=== PATIENT | male | born 1970 | race American Indian/Alaskan Native ===

== ENCOUNTER 2021-04-20 01:30 | Emergency (ER) | payer OTHER, SELFPAY ==
[2021-04-20 02:06] LABS: Basophils # (Auto) 0.1 K/mm3 (0.0-0.1); Basophils % (Auto) 1.1 % (0.0-1.8); Eosinophils # (Auto) 0.2 K/mm3 (0.0-0.4); Eosinophils % (Auto) 4.1 % (0.0-4.3); Hematocrit 37.6 % (35.5-45.6); Hemoglobin 12.4 gm/dl (11.8-15.2); Lymphocytes # (Auto) 2.2 K/mm3 (1.2-5.4); Lymphocytes % (Auto) 36.8 % (13.4-35.0); Mean Corpuscular HGB Conc 33 % (32-34); Mean Corpuscular Volume 81 fl (84-94); Monocytes # (Auto) 0.5 K/mm3 (0.0-0.8); Monocytes % (Auto) 9.2 % (0.0-7.3); Platelet Count 247 K/mm3 (140-440); Red Blood Count 4.62 M/mm3 (3.65-5.03); Red Cell Distribution Width 17.1 % (13.2-15.2)
--- NOTE | 2021-04-20 02:29 | Emergency Department Report ---
ED Psych HPI - General Chief Complaint: Psych Stated Complaint: PSYCH EVAL Time Seen by Provider: 04/20/21 02:25 Source: patient, EMS Mode of arrival: Ambulatory - History of Present Illness Initial Comments: Patient is a 51-year-old male that presents emergency room with complaints of hearing voices. Patient denies homicidal ideation. Patient states he has racing thoughts. Patient states the voices tell him to kill himself. Patient states he does not want to kill himself with the voices are very strong. Patient walked treatment. Patient states he has a chronic ankle injury. Patient states he has chronic ankle pain. Patient states that he wanted him done to his ankle. Patient states he cannot take any psychiatric medications. Patient states he only takes Benadryl and Tylenol. Patient denies recent travel. Patient denies recent international travel. Patient denies exposure to the novel coronavirus. Patient denies sick contacts. Patient denies fever and chills. Patient denies cough. Patient denies diarrhea. Patient denies coming in contact with anybody with symptoms of the novel coronavirus. Complaint: other -: Sudden Associated Psychiatric Symptoms: racing thoughts, auditory hallucinations History of same: Yes Quality: constant Improves With: none If Self Harm: admits thoughts of - Related Data Previous Rx's Medication Instructions Recorded Last Taken Type Benztropine [Cogentin] 1 mg PO QHS #30 tab 04/20/21 Unknown Rx haloperidoL [Haldol] 5 mg PO BID #60 tablet 04/20/21 Unknown Rx Allergies Allergy/AdvReac Type Severity Reaction Status Date / Time No Known Allergies Allergy Unverified 04/20/21 01:46 ED Review of Systems ROS: Stated complaint: PSYCH EVAL Other details as noted in HPI Constitutional: denies: chills, fever Eyes: denies: eye pain, eye discharge, vision change ENT: denies: ear pain, throat pain Respiratory: denies: cough, shortness of breath, wheezing Cardiovascular: denies: chest pain, palpitations Endocrine: no symptoms reported Gastrointestinal: denies: abdominal pain, nausea, diarrhea Genitourinary: denies: urgency, dysuria Musculoskeletal: denies: back pain, joint swelling, arthralgia Skin: denies: rash, lesions Neurological: denies: headache, weakness, paresthesias Psychiatric: as per HPI, auditory hallucinations, suicidal thoughts. denies: anxiety, depression Hematological/Lymphatic: denies: easy bleeding, easy bruising ED Past Medical Hx - Past Medical History Previous Medical History?: Yes Hx Hypertension: No Hx CVA: No Hx Heart Attack/AMI: No Hx Psychiatric Treatment: Yes Additional medical history: Chronic ankle injury - Surgical History Past Surgical History?: No - Family History Family history: no significant - Social History Smoking Status: Unknown if ever smoked Substance Use Type: None - Medications Home Medications: Home Medications Medication Instructions Recorded Confirmed Last Taken Type Benztropine [Cogentin] 1 mg PO QHS #30 tab 04/20/21 Unknown Rx haloperidoL [Haldol] 5 mg PO BID #60 tablet 04/20/21 Unknown Rx ED Physical Exam - General Limitations: No Limitations General appearance: alert, in no apparent distress - Head Head exam: Present: atraumatic, normocephalic - Eye Eye exam: Present: normal appearance - ENT ENT exam: Present: mucous membranes moist - Neck Neck exam: Present: normal inspection - Respiratory Respiratory exam: Present: normal lung sounds bilaterally. Absent: respiratory distress - Cardiovascular Cardiovascular Exam: Present: regular rate, normal rhythm. Absent: systolic murmur, diastolic murmur, rubs, gallop - GI/Abdominal GI/Abdominal exam: Present: soft, normal bowel sounds - Rectal Rectal exam: Present: deferred - Extremities Exam Extremities exam: Present: normal inspection - Back Exam Back exam: Present: normal inspection - Neurological Exam Neurological exam: Present: alert, oriented X3 - Psychiatric Psychiatric exam: Present: agitated, suicidal ideation - Expanded Psychiatric Exam Expanded Focused psych exam: Present: pressured speech, restlessness - Skin Skin exam: Present: warm, dry, intact, normal color. Absent: rash ED Course Vital Signs 04/20/21 04/20/21 04/20/21 01:45 02:46 08:02 Temperature 97.9 F 97.8 F 98 F Pulse Rate 111 H 109 H 80 Respiratory 18 18 20 Rate Blood Pressure 129/90 102/52 115/73 [Left] O2 Sat by Pulse 100 96 Oximetry - Reevaluation(s) Reevaluation #1: Initial evaluation done. Patient placed on a ER hold. 04/20/21 02:28 Reevaluation #2: Patient is medically cleared. Patient will remain in the ER's ER hold until the patient's final disposition comes from our psychiatry team. 04/20/21 06:05 ED Medical Decision Making - Lab Data Result diagrams: 04/20/21 01:48 04/20/21 01:48 - Medical Decision Making Patient is a 51-year-old male presents emergency room with complaints of hallucinations. Patient dates he reports and was found to himself. Patient does not have a plan. Patient had labs done which were essentially unremarkable. Patient is medically cleared. Patient placed on a ER hold on a 1013 immediately after initial evaluation. Patient is medically clear. Patient will remain in the ER as an ER hold until patient's final disposition will come from our psychiatry team. - Differential Diagnosis Medical clearance, suicidal ideation, hallucinations, psychosis Critical care attestation.: If time is entered above; I have spent that time in minutes in the direct care of this critically ill patient, excluding procedure time. ED Disposition Clinical Impression: Illicit drug use, Case management patient, Homeless Disposition: [id number] TO HOME OR SELFCARE Is pt being admited?: No Does the pt Need Aspirin: No Condition: Good Additional Instructions: Recommend that patient avoid consumption of tobacco, alcohol, marijuana, recreational drugs. Patient is going to be given a list of homeless shelters, he may present himself to any of these homeless shelters, and seek to obtain placement. The patient may also follow-up with any of the listed outpatient resources. Please continue the psychiatric medications which have been prescribed for the patient. Please return to the emergency room right away with new pain, worsened pain, migration of pain, projectile vomiting, change in mental status, confusion, inability to tolerate liquid feeds, new, worsened or different symptoms not present on the initial emergency room evaluation. If patient would like to speak to the director of social services or correctional case records supervisor about options for homeless shelters, in addition to the printed handout has been provided to the patient, he may wait in the waiting room to discuss with correctional case records supervisor/director of social services. .Professional and Agency Contacts To help [facility] (16/06) [place] Crisis Line: Suicide Prevention Line: Crisis Text Line: Text START to 207729 Emergency: 911 Outpatient COMMUNITY Behavioral Health Resources: LETTYLB: [facility] [address] [place] [id number] AVERY: [facility] [address] [place] [address] Friday thru Friday - 8am - 5pm Call to schedule an assessment for mental health and substance abuse programs [facility] Address: [address] [place] [address] Friday thru Friday- 7am-2pm [facility] Address: [address] [place] [address] Friday thru Friday: 8:30AM-5PM Prescriptions: Benztropine [Cogentin] 1 mg PO QHS #30 tab haloperidoL [Haldol] 5 mg PO BID #60 tablet Referrals: [facility] [Provider Group] - 3-5 Days [facility] [Outside] - 3-5 Days [facility] [Outside] - 3-5 Days Time of Disposition: 06:06
[2021-04-20 02:36] LABS: BUN/Creatinine Ratio 10; Blood Urea Nitrogen 11 mg/dL (9-20); Calcium 9.2 mg/dL (8.4-10.2); Hemolysis Index 5
[2021-04-20 05:22] LABS: Amphetamine Screen,Urine Negative; Benzodiazepines Screen,Urine Negative; Cocaine Screen,Urine Negative; Methadone Screen,Urine Negative; Opiate Screen,Urine Negative
[2021-04-20 05:34] LABS: Bacteria,Urine 1+ /HPF (Negative); Bilirubin,Urine NEG (Negative); Blood,Urine NEG (Negative); Color,Urine Yellow (Yellow); Mucus,Urine FEW /HPF; Protein,Urine <15 mg/dL mg/dL (Negative); RBC,Urine < 1.0 /HPF (0.0-6.0); Urobilinogen,Urine < 2.0 mg/dL (<2.0)
[2021-04-20 05:49] LABS: Cannabinoid Screen,Urine Positive
[2021-04-20 08:06] VITALS: BP 115/73
--- NOTE | 2021-04-20 09:28 | Consultation ---
History of Present Illness - Reason for Consult Consult date: 04/20/21 Reason for consult: MHE Requesting physician: QASIM CHUNG III - History of Present Psychiatric Illness Per ED Provider: Patient is a 51-year-old male that presents emergency room with complaints of hearing voices. Patient denies homicidal ideation. Patient states he has racing thoughts. Patient states the voices tell him to kill himself. Patient states he does not want to kill himself with the voices are very strong. Patient walked treatment. Patient states he has a chronic ankle injury. Patient states he has chronic ankle pain. Patient states that he wanted him done to his ankle. Patient states he cannot take any psychiatric medications. Patient states he only takes Benadryl and Tylenol. PSYCH HPI Patient is a 51-year-old single, currently unemployed and homeless - [place] male with past psychiatric history of paranoid schizophrenia and no significant past medical history who presented to the ED with chief complaint of SI and auditory hallucinations. Patient states that he is not suicidal, does endorse hallucination but not of commanding nature, patient states he is here because he wants a place to go, reports [facility] and when he was picked up, the transport vehicle kept driving around and around with no specific place and he ended up on the street again. Patient states he would like to be taken to a snf and does not want to be out there in the streets. PAST PSYCHIATRIC HISTORY Diagnoses: Paranoid schizophrenia Suicide attempts or Self-harm behavior: None report Prior psychiatric hospitalizations: Recently discharged yesterday Substance Abuse history: cocaine and heroine Previous psychiatric medications tried: Yes but unknown Outpatient treatment: None PAST MEDICAL HISTORY: None reported Family Psychiatric History: None reported or documented SOCIAL HISTORY Marital Status: Single Living Arrangements: Homeless Employment Status: Unemployed Access to guns/weapons: None reported Education: Ninth grade History of Abuse: None reported Legal History: Yes REVIEW OF SYSTEMS Constitutional: Negative for weight loss ENT: Negative for stridor Respiratory: Negative for cough or hemoptysis All other systems reviewed and are negative MENTAL STATUS EXAMINATION General Appearance and Behavior: Age appropriate, good hygiene, wearing appropriate clothes, poor eye contact, cooperative irritable with questioning. Cooperation: Hostile and Guarded Psychomotor Behavior: Psychomotor agitation Mood: so-so Affect and affective range: Angry, dysthymic, Thought Process:Circumstantial, Illogical, Thought Content: Hallucinations and Paranoid Speech: difficulty to understand, Intellectual Functioning: fair Suicidal Ideation: Denies SI Homicidal Ideation: Denies HI Impulse Control: Impaired Insight and Judgment: Impaired Memory: Short term memory impaired, Attention: Divided attention impaired Orientation: Alert, oriented Assessment and Plan - Psychiatric problem (1) Illicit drug use Current Visit: Yes Status: Acute F19.90 Treatment Plan Patient with recent psych intervention and discharged from [facility] but with no place to go presents back to ED. Denies acute SI, endorses wanting to go to snf. MEDICATIONS: Risks, benefits and alternatives of medications discussed with the patient, questions answered and consent obtained from patient. PSYCHOTHERAPY: Supportive psychotherapy provided MEDICAL: Per primary team DELIRIUM PRECAUTIONS: Please re-orient patient frequently, keep lights on during the day, and minimize benzodiazepines and opiates as these medications could worsen patient's confusion. PHYSICIAN OFFICE CLIN ASST: DISPOSITION: Do Not Recommend acute inpatient psychiatric hospitalization at this time. Case discussed with Dr. To who agrees with current disposition LEGAL STATUS: 1013 rescinded FOLLOW-UP: Will sign off Thank you for the consult. Please contact with any questions and/or concerns. Medications and Allergies Allergies Allergy/AdvReac Type Severity Reaction Status Date / Time No Known Allergies Allergy Unverified 04/20/21 01:46 Mental Status Exam - Vital signs Last Vital Signs Temp 98 F 04/20/21 08:02 Pulse 80 04/20/21 08:02 Resp 20 04/20/21 08:02 BP 115/73 04/20/21 08:02 Pulse Ox 96 04/20/21 02:46 Results Result Diagrams: 04/20/21 01:48 04/20/21 01:48 Abnormal lab results 04/20/21 04/20/21 04/20/21 Range/Units 01:48 01:48 01:48 MCV (84-94) fl MCH (28-32) pg RDW (13.2-15.2) % Lymph % (Auto) (13.4-35.0) % [place] % (Auto) (0.0-7.3) % Carbon Dioxide 32 H (22-30) mmol/L Glucose 156 H (75-100) mg/dL Salicylates < 0.3 L (2.8-20.0) mg/dL Acetaminophen 5.0 L (10.0-30.0) ug/mL 04/20/21 Range/Units 01:48 MCV 81 L (84-94) fl MCH 27 L (28-32) pg RDW 17.1 H (13.2-15.2) % Lymph % (Auto) 36.8 H (13.4-35.0) % [place] % (Auto) 9.2 H (0.0-7.3) % Carbon Dioxide (22-30) mmol/L Glucose (75-100) mg/dL Salicylates (2.8-20.0) mg/dL Acetaminophen (10.0-30.0) ug/mL All other labs normal. Assessment and Plan - Psychiatric problem (1) Illicit drug use Current Visit: Yes Status: Acute
--- NOTE | 2021-04-20 10:54 | Event Note ---
Date: 04/20/21 The patient was evaluated in the emergency department for symptoms described in the history of present illness. He/she was evaluated in the context of the global COVID-19 pandemic, which necessitated consideration that the patient might be at risk for infection with the virus that causes COVID-19. Institutional protocols and algorithms that pertain to the evaluation of patients at risk for COVID-19 are in a state of rapid change based on information released by regulatory bodies including the CDC and federal and state organizations. These policies and algorithms were followed during the patient's care in the emergency department. Please note that these policies, procedures and recommendations changed on a rapid basis. Nursing team endorses no acute complaints at this time, patient has endorsed no complaints either. He was medically cleared on his initial ER evaluation, and he is documented as ambulating with a steady gait, and alert and oriented x3. His 1013 was discontinued by the psychiatry team. Nursing team tells me that the patient ate a meal without difficulty this morning. Patient will be given a list of homeless shelters, and we will also place a case management consultation in the computer, so a immigration case manager/forensic social worker may discuss patient's outpatient homeless group home options with him, if he so desires. Suspect that patient is presenting for the purposes of food, group home, and secondary gain. Placing patient on hold status/1013 will serve to reinforce maladaptive behaviors, and reinforce poor coping skills when patient experiences stressful situations, and the patient will not benefit from being placed on an inpatient psychiatric hold at this time. Patient will be discharged, he can wait in the waiting room to speak to immigration case manager/forensic social worker if he likes, and he will also be given a handout of local homeless shelters. Vital Signs 04/20/21 04/20/21 04/20/21 01:45 02:46 08:02 Temperature 97.9 F 97.8 F 98 F Pulse Rate 111 H 109 H 80 Respiratory 18 18 20 Rate Blood Pressure 129/90 102/52 115/73 [Left] O2 Sat by Pulse 100 96 Oximetry Lab Results 04/20/21 04/20/21 04/20/21 Range/Units 01:48 01:48 01:48 WBC (4.5-11.0) K/mm3 RBC (3.65-5.03) M/mm3 Hgb (11.8-15.2) gm/dl Hct (35.5-45.6) % MCV (84-94) fl MCH (28-32) pg MCHC (32-34) % RDW (13.2-15.2) % Plt Count (140-440) K/mm3 Lymph % (Auto) (13.4-35.0) % [place] % (Auto) (0.0-7.3) % Eos % (Auto) (0.0-4.3) % Baso % (Auto) (0.0-1.8) % Lymph # (Auto) (1.2-5.4) K/mm3 [place] # (Auto) (0.0-0.8) K/mm3 Eos # (Auto) (0.0-0.4) K/mm3 Baso # (Auto) (0.0-0.1) K/mm3 Seg Neutrophils % (40.0-70.0) % Seg Neutrophils # (1.8-7.7) K/mm3 Sodium 142 (137-145) mmol/L Potassium 4.0 (3.6-5.0) mmol/L Chloride 103.6 (98-107) mmol/L Carbon Dioxide 32 H (22-30) mmol/L Anion Gap 10 mmol/L BUN 11 (9-20) mg/dL Creatinine 1.1 (0.8-1.3) mg/dL Estimated GFR > 60 ml/min BUN/Creatinine Ratio 10 % Glucose 156 H (75-100) mg/dL Calcium 9.2 (8.4-10.2) mg/dL Urine Color (Yellow) Urine Turbidity (Clear) Urine pH (5.0-7.0) Ur Specific [place] (1.003-1.030) Urine Protein (Negative) mg/dL Urine Glucose (UA) (Negative) mg/dL Urine Ketones (Negative) mg/dL Urine Blood (Negative) Urine Nitrite (Negative) Urine Bilirubin (Negative) Urine Urobilinogen (<2.0) mg/dL Ur Leukocyte Esterase (Negative) Urine WBC (Auto) (0.0-6.0) /HPF Urine RBC (Auto) (0.0-6.0) /HPF U Epithel Cells (Auto) (0-13.0) /HPF Urine Bacteria (Auto) (Negative) /HPF Urine Mucus /HPF Salicylates < 0.3 L (2.8-20.0) mg/dL Urine Opiates Screen Urine Methadone Screen Acetaminophen 5.0 L (10.0-30.0) ug/mL Ur Barbiturates Screen Ur Phencyclidine Scrn Ur Amphetamines Screen U Benzodiazepines Scrn Urine Cocaine Screen U Marijuana (THC) Screen Drugs of Abuse Note Plasma/Serum Alcohol (0-0.07) % 04/20/21 04/20/21 04/20/21 Range/Units 01:48 01:48 05:05 WBC 5.8 (4.5-11.0) K/mm3 RBC 4.62 (3.65-5.03) M/mm3 Hgb 12.4 (11.8-15.2) gm/dl Hct 37.6 (35.5-45.6) % MCV 81 L (84-94) fl MCH 27 L (28-32) pg MCHC 33 (32-34) % RDW 17.1 H (13.2-15.2) % Plt Count 247 (140-440) K/mm3 Lymph % (Auto) 36.8 H (13.4-35.0) % [place] % (Auto) 9.2 H (0.0-7.3) % Eos % (Auto) 4.1 (0.0-4.3) % Baso % (Auto) 1.1 (0.0-1.8) % Lymph # (Auto) 2.2 (1.2-5.4) K/mm3 [place] # (Auto) 0.5 (0.0-0.8) K/mm3 Eos # (Auto) 0.2 (0.0-0.4) K/mm3 Baso # (Auto) 0.1 (0.0-0.1) K/mm3 Seg Neutrophils % 48.8 (40.0-70.0) % Seg Neutrophils # 2.8 (1.8-7.7) K/mm3 Sodium (137-145) mmol/L Potassium (3.6-5.0) mmol/L Chloride (98-107) mmol/L Carbon Dioxide (22-30) mmol/L Anion Gap mmol/L BUN (9-20) mg/dL Creatinine (0.8-1.3) mg/dL Estimated GFR ml/min BUN/Creatinine Ratio % Glucose (75-100) mg/dL Calcium (8.4-10.2) mg/dL Urine Color Yellow (Yellow) Urine Turbidity Clear (Clear) Urine pH 5.0 (5.0-7.0) Ur Specific [place] 1.015 (1.003-1.030) Urine Protein <15 mg/dl (Negative) mg/dL Urine Glucose (UA) Neg (Negative) mg/dL Urine Ketones Neg (Negative) mg/dL Urine Blood Neg (Negative) Urine Nitrite Neg (Negative) Urine Bilirubin Neg (Negative) Urine Urobilinogen < 2.0 (<2.0) mg/dL Ur Leukocyte Esterase Neg (Negative) Urine WBC (Auto) 1.0 (0.0-6.0) /HPF Urine RBC (Auto) < 1.0 (0.0-6.0) /HPF U Epithel Cells (Auto) < 1.0 (0-13.0) /HPF Urine Bacteria (Auto) 1+ (Negative) /HPF Urine Mucus Few /HPF Salicylates (2.8-20.0) mg/dL Urine Opiates Screen Urine Methadone Screen Acetaminophen (10.0-30.0) ug/mL Ur Barbiturates Screen Ur Phencyclidine Scrn Ur Amphetamines Screen U Benzodiazepines Scrn Urine Cocaine Screen U Marijuana (THC) Screen Drugs of Abuse Note Plasma/Serum Alcohol 0.02 (0-0.07) % 04/20/21 Range/Units 05:05 WBC (4.5-11.0) K/mm3 RBC (3.65-5.03) M/mm3 Hgb (11.8-15.2) gm/dl Hct (35.5-45.6) % MCV (84-94) fl MCH (28-32) pg MCHC (32-34) % RDW (13.2-15.2) % Plt Count (140-440) K/mm3 Lymph % (Auto) (13.4-35.0) % [place] % (Auto) (0.0-7.3) % Eos % (Auto) (0.0-4.3) % Baso % (Auto) (0.0-1.8) % Lymph # (Auto) (1.2-5.4) K/mm3 [place] # (Auto) (0.0-0.8) K/mm3 Eos # (Auto) (0.0-0.4) K/mm3 Baso # (Auto) (0.0-0.1) K/mm3 Seg Neutrophils % (40.0-70.0) % Seg Neutrophils # (1.8-7.7) K/mm3 Sodium (137-145) mmol/L Potassium (3.6-5.0) mmol/L Chloride (98-107) mmol/L Carbon Dioxide (22-30) mmol/L Anion Gap mmol/L BUN (9-20) mg/dL Creatinine (0.8-1.3) mg/dL Estimated GFR ml/min BUN/Creatinine Ratio % Glucose (75-100) mg/dL Calcium (8.4-10.2) mg/dL Urine Color (Yellow) Urine Turbidity (Clear) Urine pH (5.0-7.0) Ur Specific [place] (1.003-1.030) Urine Protein (Negative) mg/dL Urine Glucose (UA) (Negative) mg/dL Urine Ketones (Negative) mg/dL Urine Blood (Negative) Urine Nitrite (Negative) Urine Bilirubin (Negative) Urine Urobilinogen (<2.0) mg/dL Ur Leukocyte Esterase (Negative) Urine WBC (Auto) (0.0-6.0) /HPF Urine RBC (Auto) (0.0-6.0) /HPF U Epithel Cells (Auto) (0-13.0) /HPF Urine Bacteria (Auto) (Negative) /HPF Urine Mucus /HPF Salicylates (2.8-20.0) mg/dL Urine Opiates Screen Negative Urine Methadone Screen Negative Acetaminophen (10.0-30.0) ug/mL Ur Barbiturates Screen Negative Ur Phencyclidine Scrn Negative Ur Amphetamines Screen Negative U Benzodiazepines Scrn Negative Urine Cocaine Screen Negative U Marijuana (THC) Screen Positive Drugs of Abuse Note Disclamer Plasma/Serum Alcohol (0-0.07) %
== END 2021-04-20 11:29 | disposition home or self-care (01) ==
LOC: ED 01:30
DX: R44.0 Auditory hallucinations (principal); R45.851 Suicidal ideations; Z20.822 Contact with and (suspected) exposure to COVID-19
CPT/HCPCS: 36415; 80048; 80307; 81001; 85025; 99284; U0003; 80320; G0480